=== PATIENT | female | born 1985 | race Two or more races ===

== ENCOUNTER 2019-03-13 00:04 | Inpatient (IN) ==
[2019-03-13] MEDS ORDERED: NS 1000 ML 1,000 ML IV ONE (00:06)
[2019-03-13] MEDS ORDERED: NS 1000 ML 1,000 ML ONE (00:06)
[2019-03-13 00:21] VITALS: BMI 36.6
[2019-03-13 00:31] LABS: BASOPHILS % (AUTO) 0.3 % (0.2-1.0); EOSINOPHILS # (AUTO) 0.1 x10^3/uL (0.0-0.2); EOSINOPHILS % (AUTO) 0.6 % (0.9-2.9); HEMATOCRIT 24.8 % (36.0-47.0); HEMOGLOBIN 7.6 g/dL (12.0-16.0); LYMPHOCYTES # (AUTO) 2.1 X10^3/uL (1.3-2.9); LYMPHOCYTES % (AUTO) 22.4 % (21.0-51.0); MEAN CORPUSCULAR HEMOGLOBIN 21.2 pg (27.0-34.0); MEAN CORPUSCULAR HGB CONC 30.6 g/dL (33.0-35.0); MEAN CORPUSCULAR VOLUME 69.2 fL (80.0-100.0); MEAN PLATELET VOLUME 8.1 fL (7.4-11.0); MONOCYTES # (AUTO) 0.6 x10^3/uL (0.3-0.8); MONOCYTES % (AUTO) 5.8 % (0.0-13.0); NEUTROPHILS # (AUTO) 6.7 x10^3/uL (2.2-4.8); NEUTROPHILS % (AUTO) 70.9 % (42.0-75.0); PLATELET COUNT 193 X10^3/uL (150.0-450.0); RED BLOOD COUNT 3.58 X10^6/uL (3.5-5.4); RED CELL DISTRIBUTION WIDTH 18.3 % (11.6-16.5); WHITE BLOOD COUNT 9.5 X10^3/uL (3.6-10.0)
[2019-03-13 00:34] LABS: AMNISURE ROM TEST THERE IS A RUPTURE (NO RUPTURE)
[2019-03-13] MEDS ORDERED: ANCEF 1 GRAM IV PREMIX* 1 G/50 ML BAG IV ONE (00:38)
[2019-03-13 00:40] LABS: ALANINE AMINOTRANSFERASE 14 Units/L (12-78); ALBUMIN 2.5 g/dL (3.4-5.0); ALKALINE PHOSPHATASE 153 Units/L (46-116); ASPARTATE AMINO TRANSFERASE 19 Units/L (15-37); BLOOD UREA NITROGEN 11 mg/dL (7-18); CALCIUM 8.3 mg/dL (8.5-10.1); CARBON DIOXIDE 22.3 mmol/L (21-32); CHLORIDE 102 mmol/L (98-107); COR CA(FOR HYPOALB) 9.5 mg/dL (8.5-10.1); CREATININE 0.53 mg/dL (0.55-1.02); SODIUM 136 mmol/L (136-145); TOTAL PROTEIN 7.2 g/dL (6.4-8.2); eGFR NON BLACK RACES > 60 (>60)
[2019-03-13] MEDS ORDERED: DILAUDID INJ ONE (01:07)
[2019-03-13 01:26] LABS: RAPID PLASMA REAGIN NONREACTIVE (NONREACTIVE)
[2019-03-13] MEDS ORDERED: LR 1000 ML IV 1,000 ML ONE (01:30)
[2019-03-13 01:33] LABS: ANISOCYTOSIS SLIGHT; HYPOCHROMASIA 2+; MICROCYTOSIS 1+; PLATELET MORPHOLOGY COMMENT NORMAL (NORMAL)
[2019-03-13 02:10] LABS: BILIRUBIN,URINE NEGATIVE (NEGATIVE); BLOOD/HEMOGLOBIN,URINE 1+ (NEGATIVE); GLUCOSE, URINE NEGATIVE (NEGATIVE); KETONES,URINE NEGATIVE (NEGATIVE); LEUKOCYTE ESTERASE ,URINE NEGATIVE (NEGATIVE); NITRITES,URINE NEGATIVE (NEGATIVE); PROTEIN,URINE 2+ (NEGATIVE); UROBILINOGEN,URINE NORMAL (NORMAL)
[2019-03-13] MEDS ORDERED: BENADRYL INJ 50 MG VIAL IVP PRN ×3 (02:16→02:42)
[2019-03-13] MEDS ORDERED: PHENERGAN INJ 25 MG IM PRN (02:16)
[2019-03-13] MEDS ORDERED: ZOFRAN INJ 4 MG VIAL IVP PRN ×3 (02:16→02:42)
[2019-03-13] MEDS ORDERED: DILAUDID INJ IVP PRN (02:16)
[2019-03-13] MEDS ORDERED: REGLAN INJ 10 MG VIAL IVP PRN ×2 (02:16→02:42)
[2019-03-13 02:20] LABS: APPEARANCE,URINE CLEAR (CLEAR); BACTERIA,URINE NEGATIVE /HPF (NEGATIVE); COLOR,URINE YELLOW (YELLOW); MUCUS,URINE RARE /HPF (NEGATIVE); SQUAMOUS EPITHELIAL CELL,UR RARE /HPF (NEGATIVE)
[2019-03-13] MEDS ORDERED: NARCAN INJ IVP PRN ×2 (02:23→02:42)
[2019-03-13] MEDS ORDERED: PERCOCET TAB 5/325 MG PO PRN ×2 (02:23→02:42)
[2019-03-13] MEDS ORDERED: TORADOL 30 MG VIAL IVP PRN (02:23)
[2019-03-13] MEDS ORDERED: MYLICON TAB 80 MG CHEW PO PRN (02:41)
[2019-03-13] MEDS ORDERED: ADACEL or BOOSTRIX TDaP VACCINE IM ONE ×2 (02:41→03:57)
[2019-03-13] MEDS ORDERED: D5 1/2 NS 1L W PITOCIN 20 UNITS/L 20 UNITS/1,000 ML BAG IV ONE (02:47)
[2019-03-13] MEDS ORDERED: D5 1/2 NS 1000 ML 1,000 ML with PITOCIN 20 UNITS IV SCH ×2 (03:00)
[2019-03-13] MEDS ORDERED: ZOFRAN INJ 4 MG VIAL ONE (03:57)
[2019-03-13 04:33] LABS: HEMATOCRIT 21.8 % (36.0-47.0)
[2019-03-13 04:43] LABS: HEMOGLOBIN 6.6 g/dL (12.0-16.0)
[2019-03-13] MEDS: TORADOL 30 MG VIAL IVP PRN ×2 (08:33→20:10)
[2019-03-13] MEDS: PRENATAL PLUS PO SCH (08:34)
[2019-03-13] MEDS ORDERED: DEXFERRUM or INFED 25 MG in NS 100 ML IV 100 ML IV ONE (09:03)
[2019-03-13] MEDS ORDERED: EPHEDRINE SULFATE INJ ONE ×2 (09:32→15:20)
[2019-03-13] MEDS ORDERED: PHARMACY CONSULT - DOSE _____ XX SCH (10:00)
[2019-03-13] MEDS ORDERED: DEXFERRUM or INFED 25 MG in NS 100 ML IV 100 ML IV NR (11:00)
[2019-03-13] MEDS ORDERED: NS IV NR (12:00)
[2019-03-13] MEDS ORDERED: [UNRECOGNIZED DRUG - OTHER] IV NR (12:00)
[2019-03-13] MEDS ORDERED: MARCAINE SPINAL ONE (15:20)
[2019-03-13] MEDS ORDERED: XYLOCAINE 2 % (PLAIN) ONE (15:20)
[2019-03-13] MEDS ORDERED: VERSED ONE (15:20)
[2019-03-13] MEDS ORDERED: PITOCIN ONE (15:20)
[2019-03-14] MEDS: PRENATAL PLUS PO SCH (09:11)
[2019-03-14] MEDS: MOTRIN TAB 800 MG PO PRN ×2 (09:11→18:20)
[2019-03-14] MEDS: TORADOL 30 MG VIAL IVP PRN (20:49)
[2019-03-15] MEDS: MOTRIN TAB 800 MG PO PRN (04:36)
[2019-03-15] MEDS: PRENATAL PLUS PO SCH (09:27)
[2019-03-15 13:54] VITALS: BP 114/70
== END 2019-03-15 14:30 | disposition home or self-care (01) | DRG 788 ==
LOC: ER 00:04 → LD 00:33 → MED/SURG 02:22
PROVIDERS: ADMIT Obstetrics & Gynecology Obstetrics; ATTEND Obstetrics & Gynecology Obstetrics
DX: Z3A.38 38 weeks gestation of pregnancy; N85.8 Other specified noninflammatory disorders of uterus; Z23 Encounter for immunization; Z37.0 Single live birth; O34.211 Maternal care for low transverse scar from previous cesarean delivery
CPT/HCPCS: 36415; 80053; 81001; 82607; 82728; 82746; 83540; 84112; 84466; 85014; 85018; 85025; 86592; 86701; 86703; 86850; 86900; 86901; 87389; 90715; 96365; 99284; A4216; A4222; S0197; J0690; J1170; J1750; J1885; J2250; J2405; J2590; J3490; J7030; J7040; J7050; J7120

== ENCOUNTER 2023-09-01 13:30 | Inpatient (IN) ==
[2023-09-01] MEDS ORDERED: NS IRRIGATION* 1,000 ML ONE (14:55)
[2023-09-01] MEDS ORDERED: LR 1,000 ML IV 1,000 ML IV ONE ×2 (15:52→15:59)
[2023-09-01] MEDS ORDERED: ANCEF VIAL 1 GRAM IVP ONE (15:52)
[2023-09-01] MEDS ORDERED: NOZIN NASAL SANITIZER TP ONE ×2 (15:56→15:58)
[2023-09-01] MEDS ORDERED: NS 100 ML IV 100 ML ONE (15:58)
[2023-09-01] MEDS ORDERED: ANCEF VIAL 1 GRAM ONE (15:58)
[2023-09-01 16:24] LABS: BASOPHILS # (AUTO) 0.1 X10^3/uL (0.0-0.1); BASOPHILS % (AUTO) 0.7 % (0.2-1.0); EOSINOPHILS # (AUTO) 0.1 x10^3/uL (0.0-0.2); EOSINOPHILS % (AUTO) 1.2 % (0.9-2.9); HEMATOCRIT 32.8 % (36.0-47.0); HEMOGLOBIN 10.5 g/dL (12.0-16.0); LYMPHOCYTES % (AUTO) 27.1 % (21.0-51.0); MEAN CORPUSCULAR HEMOGLOBIN 25.8 pg (27.0-34.0); MEAN CORPUSCULAR HGB CONC 32.1 g/dL (33.0-35.0); MEAN CORPUSCULAR VOLUME 80.4 fL (80.0-100.0); MEAN PLATELET VOLUME 8.8 fL (7.4-11.0); MONOCYTES # (AUTO) 0.4 x10^3/uL (0.3-0.8); MONOCYTES % (AUTO) 5.8 % (0.0-13.0); NEUTROPHILS # (AUTO) 4.7 x10^3/uL (2.2-4.8); NEUTROPHILS % (AUTO) 65.2 % (42.0-75.0); PLATELET COUNT 179 X10^3/uL (150.0-450.0); RED BLOOD COUNT 4.09 X10^6/uL (3.5-5.4); RED CELL DISTRIBUTION WIDTH 14.9 % (11.6-16.5); WHITE BLOOD COUNT 7.2 X10^3/uL (3.6-10.0)
[2023-09-01 16:42] LABS: ALANINE AMINOTRANSFERASE 21 Units/L (12-78); ALBUMIN 2.6 g/dL (3.4-5.0); ALKALINE PHOSPHATASE 206 Units/L (46-116); ASPARTATE AMINO TRANSFERASE 32 Units/L (15-37); BLOOD UREA NITROGEN 7 mg/dL (7-18); CALCIUM 8.8 mg/dL (8.5-10.1); CARBON DIOXIDE 25.2 mmol/L (21-32); CHLORIDE 100 mmol/L (98-107); COR CA(FOR HYPOALB) 9.9 mg/dL (8.5-10.1); CREATININE 0.45 mg/dL (0.55-1.02); GLUCOSE 72 mg/dL (65-99); POTASSIUM 3.4 mmol/L (3.5-5.1); SODIUM 134 mmol/L (136-145); TOTAL PROTEIN 7.9 g/dL (6.4-8.2); eGFR NON BLACK RACES > 60 (>60)
[2023-09-01] MEDS ORDERED: MARCAINE SPINAL ONE (18:11)
[2023-09-01] MEDS ORDERED: DILAUDID INJ ONE (18:11)
[2023-09-01] MEDS ORDERED: PITOCIN ONE (18:13)
[2023-09-01] MEDS ORDERED: VERSED ONE (18:13)
[2023-09-01] MEDS ORDERED: REGLAN INJ 10 MG VIAL IVP PRN ×3 (18:15→20:03)
[2023-09-01] MEDS ORDERED: ZOFRAN INJ 4 MG VIAL IVP PRN ×3 (18:15→20:03)
[2023-09-01] MEDS ORDERED: BARHEMSYS INJ IVP PRN (18:15)
[2023-09-01] MEDS ORDERED: BENADRYL INJ 50 MG VIAL IVP PRN ×3 (18:15→20:03)
[2023-09-01] MEDS ORDERED: PERCOCET TAB 5/325 MG PO PRN ×2 (18:16→20:03)
[2023-09-01] MEDS ORDERED: NARCAN INJ IVP PRN (18:16)
[2023-09-01] MEDS ORDERED: EPHEDRINE SULFATE INJ ONE (18:39)
[2023-09-01] MEDS ORDERED: TORADOL 30 MG VIAL IVP PRN (20:03)
[2023-09-01] MEDS ORDERED: MYLICON TAB 80 MG CHEW PO PRN (20:03)
[2023-09-01] MEDS ORDERED: D5 1/2 NS 1,000 ML 1,000 ML with PITOCIN 20 UNITS IV SCH ×2 (20:03)
[2023-09-02 05:05] LABS: HEMATOCRIT 24.3 % (36.0-47.0)
[2023-09-02 05:35] LABS: HEMOGLOBIN 7.9 g/dL (12.0-16.0)
[2023-09-02] MEDS: PRENATAL PLUS PO SCH (08:44)
[2023-09-02] MEDS ORDERED: NS 100 ML IV 100 ML with VENOFER 400 MG IV NR ×2 (09:03)
[2023-09-02] MEDS ORDERED: PERCOCET TAB 5/325 MG PO PRN (18:00)
[2023-09-03] MEDS ORDERED: MOTRIN TAB 800 MG PO PRN
[2023-09-03 04:08] VITALS: RESP 20
[2023-09-03] MEDS: PRENATAL PLUS PO SCH (08:35)
[2023-09-03] MEDS ORDERED: NS 100 ML IV 100 ML with VENOFER 400 MG IV NR ×2 (09:27)
[2023-09-03 11:48] VITALS: BP 102/59; PULSE 88; TEMP 98; O2SAT 93
== END 2023-09-03 13:25 | disposition home or self-care (01) | DRG 785 ==
LOC: LD 15:48 → MED/SURG 19:50
PROVIDERS: ADMIT Obstetrics & Gynecology Obstetrics; ATTEND Obstetrics & Gynecology Obstetrics